=== PATIENT | male | born 1995 | race Caucasian/White ===

== ENCOUNTER 2016-09-04 23:45 | Emergency (ER) | payer BC, MEDICAID ==
[~2016-09-04] VITALS: Ht 175.3 cm; Wt 91.8 kg
[~2016-09-04 23:45] MED LIST: AMOXICILLIN875 MG PO; NAPROSYN500 MG PO
[2016-09-04 23:47] VITALS: TEMP 98.3
[2016-09-05 00:36] LABS: BASO % 0.3 % (0.0-2.0); EOS # 0.2 (0.0-0.7); EOS % 1.7 % (0-4.0); GRAN # 7.1 (1.4-6.5); GRAN % 60.1 % (42.2-75.2); HEMATOCRIT 44.1 % (36.0-47.0); HEMOGLOBIN 15.5 g/dl (12.5-16.1); LYMPH # 3.5 (1.2-3.4); LYMPH % 29.8 % (20.0-51.0); MEAN CELL VOLUME 84 fl (80.0-95.0); MEAN CORPUSCULAR HEMOGLOBIN 29 pg (26.0-32.0); MEAN CORPUSCULAR HGB CONC 35 g/dl (33.0-37.0); MEAN PLATELET VOLUME 9.6 fl (7.4-10.4); MONO # 0.9 (0.1-0.6); MONO % 7.6 % (1.7-9.3); PLATELET COUNT 237 K/mm3 (130-400); RED BLOOD COUNT 5.27 M/mm3 (4.20-5.60); REDCELL DISTRIBUTION WIDTH-CV 12.3 % (11.5-14.5); WHITE BLOOD COUNT 11.9 K/mm3 (4.8-10.8)
[2016-09-05 00:42] LABS: PH 6 (5-8); SQUAMOUS EPITHELIAL None Seen /hpf; URINE APPEARANCE Clear; URINE BACTERIA None Seen /hpf; URINE BILIRUBIN Negative (NEGATIVE); URINE BLOOD Negative (NEGATIVE); URINE COLOR Yellow; URINE GLUCOSE Negative (NEGATIVE); URINE KETONE Negative (NEGATIVE); URINE RBC 0-2 /hpf; URINE UROBILINOGEN Negative (NEGATIVE); URINE WBC 0-2 /hpf
[2016-09-05 00:45] LABS: ADJUSTED CALCIUM 9.2 mg/dL (8.4-10.2); ALBUMIN 4.6 gm/dL (3.5-5.0); BILIRUBIN,TOTAL 0.8 mg/dL (0.0-1.0); CALCIUM 9.7 mg/dL (8.4-10.2); CREATININE, serum 0.9 mg/dL (0.66-1.25); POTASSIUM 3.7 mmol/L (3.4-5.0); TOTAL PROTEIN 7.5 gm/dL (6.4-8.2)
[2016-09-05] MEDS ORDERED: FLEXERIL 1010 MG/TAB PO (01:50)
[2016-09-05 02:07] VITALS: BP 131/87; PULSE 94
== END 2016-09-05 02:07 | disposition home or self-care (01) ==
LOC: COL.ER 23:45
PROVIDERS: Physician Assistant
DX: S30.1XXA Contusion of abdominal wall, initial encounter (principal); W21.89XA Striking against or struck by other sports equipment, initial encounter; Y93.67 Activity, basketball; Y92.310 Basketball court as the place of occurrence of the external cause
CPT/HCPCS: J1170; Q9967

== ENCOUNTER → 2017-02-28 | Outpatient (REF) ==
[~2017-02-28] MED LIST changes: +FLEXERIL 1010 MG/TAB PO
== END ==
LOC: WSOH 15:15
DX: Z02.89 Encounter for other administrative examinations (principal)

== ENCOUNTER 2017-03-03 12:48 | Emergency (ER) | payer OTHER ==
[~2017-03-03] VITALS: Ht 175.3 cm; Wt 89.1 kg
[2017-03-03 12:54] VITALS: BP 129/83; PULSE 62; TEMP 98.4
== END 2017-03-03 14:17 | disposition home or self-care (01) ==
LOC: COL.ER 12:48
DX: S60.221A Contusion of right hand, initial encounter (principal); W55.22XA Struck by cow, initial encounter

== ENCOUNTER → 2020-05-26 | Outpatient (CLI) | payer BC | LOC: COL.RAD 08:08 | DX: M25.531 Pain in right wrist (principal) | CPT/HCPCS: A9585; Q9967 ==

== ENCOUNTER → 2024-04-23 | Outpatient (CLI) | payer MEDICAID ==
[~2024-04-23] MED LIST changes: +TORADOL 10MG TA10 MG PO
== END ==
LOC: COL.RAD 15:21
DX: R10.11 Right upper quadrant pain (principal)